=== PATIENT | male | born 1970 | race Caucasian/White ===

== ENCOUNTER 2020-05-28 12:36 | Outpatient (REF) | payer OTHER, SELFPAY | END 2020-05-28 12:37 | disposition home or self-care (01) | LOC: HO.LAB 12:36 | PROVIDERS: Visit Provider Internal Medicine | DX: Z20.828 Contact with and (suspected) exposure to other viral communicable diseases (principal) | CPT/HCPCS: C9803; U0003 ==

== ENCOUNTER 2021-06-09 08:08 | Emergency (ER) | payer BC, SELFPAY ==
[2021-06-09 08:13] VITALS: BP 167/103; PULSE 92; O2SAT 100
--- NOTE | 2021-06-09 08:14 | ED.GENADULT ---
HPI - General Adult General Chief complaint: General Medical Stated complaint: pain Time Seen by Provider: 06/09/21 08:13 Source: patient Mode of arrival: EMS Limitations: no limitations History of Present Illness HPI narrative: Patient is feeling antsy all over his body. This happened after he took suboxone and put himself into withdrawal. Feeling spasms all over his body Onset (ago): hour(s) Severity: severe Pain Consistency: constant Related Data Allergies Allergy/AdvReac Type Severity Reaction Status Date / Time No Known Allergies Allergy Unverified 04/01/20 18:10 Review of Systems Constitutional: Constitutional: Reports no additional constitutional complaints Eyes: Eyes: Reports no additional eye complaints ENT: Denies dizziness Cardiovascular: Cardiovascular: Reports no additional cardiovascular complaints Respiratory: Respiratory: Reports as per HPI Gastrointestinal: Gastrointestinal: Reports no additional gastrointestinal complaints Musculoskeletal: Musculoskeletal: Reports no additional musculoskeletal complaints Integumentary/Breasts: Skin/Breast: Denies rash Neurologic: Reports system reviewed and no additional complaints, except as documented, Denies dizziness and Denies Sensory deficit (Neuro) Psychiatric: Psychiatric: Denies anxiety [facility] Social History Social History Advance Directives: No Advance Directives Information Provided: No Physical Exam Vital Signs: Vital Signs: Last Vital Signs Temp 98 F 06/09/21 08:17 Pulse 77 06/09/21 09:53 Resp 16 06/09/21 09:53 BP 128/93 H 06/09/21 09:53 Pulse Ox 98 06/09/21 09:53 Body Mass Index 26.3 Const: Other: agitated, jumping off the bed, screaming Nutritional Appearance: average body habitus Orientation/consciousness: oriented to person and patient oriented x3 Limitations: no limitations HENMT: Head: Yes normal to inspection Ears: external ears normal General nose exam: Normal external nose present Mouth: Normal oral and palatal mucosa present and oropharynx normal Throat: Yes posterior oropharynx normal Eyes: General: appearance normal, both eyes and all related structures Neck: Other: supple Neck: Yes normal visual inspection Chest: Chest palpation & inspection: normal inspection of the chest Resp: Auscultation: clear to auscultation bilaterally Cardio: Jugular venous distension: no JVD Rate: regular rate Rhythm: regular rhythm Heart sounds: S1 normal heart sound present and S2 normal heart sound present GI: Inspection: Yes normal to inspection Palpation (GI): Soft to palpation, nontender and No hepatosplenomegaly present Auscultation: normal bowel sounds : General: Yes no CVA tenderness Back/Spine/Pelvis: Back: no CVA tenderness Skin: General skin exam: no rashes or lesions noted Neuro: General: oriented to person and patient oriented x3 Cranial nerves: Yes CN's II-XII intact bilaterally Motor exam (neuro): 5/5 motor strength present throughout Sensory Exam: No Sensory deficit (Neuro) Extrem: General: Yes normal to inspection Psych: Appearance: grossly normal Course Reevaluation(s) Reevaluation #1: Patient resting more comfortably will dc home. Impression was opiate withdrawal secondary to inappropriate suboxone usage. Time: 10:46 Discharge Plan Discharge Clinical Impression: Opiate withdrawal Patient Disposition: Home, Self-Care Instructions: Opioid Withdrawal (ED) Referrals: Physician,None [Primary Care Provider] - 1 week
[2021-06-09 08:17] VITALS: BP 104/82; PULSE 84; RESP 19; TEMP 36.6; O2SAT 99; BMI 26.3
[2021-06-09] MEDS: LORazepam 2 MG/ML VIAL IM (08:25)
[2021-06-09] MEDS: Haloperidol Lactate 5 MG/ML VIAL IM (08:25)
[2021-06-09 09:53] VITALS: BP 128/93; PULSE 77; RESP 16; O2SAT 98
== END 2021-06-09 11:32 | disposition home or self-care (01) ==
PROVIDERS: Emergency Provider Emergency Medicine
DX: F11.23 Opioid dependence with withdrawal (principal); R25.2 Cramp and spasm; Z71.51 Drug abuse counseling and surveillance of drug abuser
CPT/HCPCS: 96372; 99283; 99284; J2060